=== PATIENT | female | born 1975 | race American Indian/Alaskan Native ===

== ENCOUNTER 2020-09-13 00:38 | Emergency (ER) | payer SELFPAY ==
[2020-09-13] MEDS ORDERED: ACETAMINOPHEN 500 MG TAB PO ONE (04:20)
[2020-09-13] MEDS ORDERED: KETOROLAC 30 MG/1 ML INJ IM ONE (04:20)
[2020-09-13] MEDS ORDERED: CLINDAMYCIN 300 MG CAP PO ONE (04:20)
--- NOTE | 2020-09-13 04:25 | Emergency Department Report ---
ED General Adult HPI - General Chief complaint: Dental/Oral Stated complaint: TOOTHACHE Source: patient Mode of arrival: Ambulatory Limitations: No Limitations - History of Present Illness Initial comments: Patient is a 45-year-old -[place] female with a history of morbid obesity presents to the ED with complaint of acute onset persistent right maxillary premolar molar toothache with gingival pain for the last 2 days. Patient states that she has been taking [id number] pain medications with no relief. Patient states that she has not been able to sleep especially in the last 8 hours because of worsening pain. Patient denies fever, chills, nausea, vomiting, traumatic injury, dizziness, headache, chest pain, shortness of breath, sore throat or neck pain and change in vision. MD Complaint: right maxillary premolar and molar toothache; painful gingiva -: Sudden, days(s) (2) Location: mouth Radiation: non-radiation Severity scale (0 -10): 8 Quality: aching, sharp Consistency: constant Improves with: none Worsens with: none Associated Symptoms: denies other symptoms. denies: confusion, chest pain, cough, diaphoresis, fever/chills, headaches, loss of appetite, malaise, nausea/vomiting, rash, shortness of breath, syncope, weakness Treatments Prior to Arrival: NSAID (12 hours ago) - Related Data Previous Rx's Medication Instructions Recorded Last Taken Type Acetaminophen/Codeine [Tylenol 1 tab PO Q6H PRN #10 tab 09/13/20 Unknown Rx /Codeine # 3 tab] Clindamycin [Clindamycin CAP] 300 mg PO Q8HR #60 capsule 09/13/20 Unknown Rx Ketorolac [Toradol] 10 mg PO Q8H PRN #20 tablet 09/13/20 Unknown Rx Allergies Allergy/AdvReac Type Severity Reaction Status Date / Time No Known Allergies Allergy Verified 09/13/20 04:37 ED Review of Systems ROS: Stated complaint: TOOTHACHE Other details as noted in HPI Constitutional: denies: chills, fever Eyes: denies: eye pain, eye discharge, vision change ENT: dental pain (Right maxillary premolar molar toothache with painful gum). denies: ear pain, throat pain, congestion Respiratory: denies: cough, shortness of breath, wheezing Cardiovascular: denies: chest pain, palpitations Endocrine: no symptoms reported Gastrointestinal: denies: abdominal pain, nausea, diarrhea Genitourinary: denies: urgency, dysuria, discharge Musculoskeletal: denies: back pain, joint swelling, arthralgia Skin: denies: rash, lesions Neurological: denies: headache, weakness, paresthesias Psychiatric: denies: anxiety, depression Hematological/Lymphatic: denies: easy bleeding, easy bruising ED Past Medical Hx - Past Medical History Previous Medical History?: No - Surgical History Past Surgical History?: No - Social History Smoking Status: Former Smoker Substance Use Type: None - Medications Home Medications: Home Medications Medication Instructions Recorded Confirmed Last Taken Type Acetaminophen/Codeine [Tylenol 1 tab PO Q6H PRN #10 tab 09/13/20 Unknown Rx /Codeine # 3 tab] Clindamycin [Clindamycin CAP] 300 mg PO Q8HR #60 capsule 09/13/20 Unknown Rx Ketorolac [Toradol] 10 mg PO Q8H PRN #20 tablet 09/13/20 Unknown Rx ED Physical Exam - General Limitations: No Limitations General appearance: alert, in no apparent distress - Head Head exam: Present: atraumatic, normocephalic, normal inspection - Eye Eye exam: Present: normal appearance, PERRL, EOMI Pupils: Present: normal accommodation - ENT ENT exam: Present: mucous membranes moist, TM's normal bilaterally, normal external ear exam, other (Swollen severely tender right maxillary gingiva; severely tender right maxillary premolar and molar teeth) - Neck Neck exam: Present: normal inspection, full ROM - Respiratory Respiratory exam: Present: normal lung sounds bilaterally. Absent: respiratory distress, wheezes, rales, stridor, chest wall tenderness, accessory muscle use, decreased breath sounds, prolonged expiratory - Cardiovascular Cardiovascular Exam: Present: regular rate, normal rhythm, normal heart sounds. Absent: systolic murmur, diastolic murmur, rubs, gallop - GI/Abdominal GI/Abdominal exam: Present: soft, normal bowel sounds. Absent: tenderness, guarding, rebound, hyperactive bowel sounds, hypoactive bowel sounds, organomegaly - Extremities Exam Extremities exam: Present: normal inspection, full ROM, normal capillary refill - Back Exam Back exam: Present: normal inspection, full ROM. Absent: tenderness, CVA tenderness (R), CVA tenderness (L), muscle spasm, paraspinal tenderness, vertebral tenderness - Neurological Exam Neurological exam: Present: alert, oriented X3, CN II-XII intact, normal gait, reflexes normal - Psychiatric Psychiatric exam: Present: normal affect, normal mood, anxious - Skin Skin exam: Present: warm, dry, intact, normal color. Absent: rash ED Course Vital Signs 09/13/20 09/13/20 03:50 05:03 Temperature 98.0 F 98.2 F Pulse Rate 66 61 Respiratory 18 18 Rate Blood Pressure 214/100 Blood Pressure 199/104 [Right] O2 Sat by Pulse 100 97 Oximetry ED Medical Decision Making - Medical Decision Making This is a 45-year-old -[place] female with a history of morbid obesity presents to the ED with complaint of acute onset persistent right maxillary premolar molar toothache with gingival pain for the last 2 days. Patient states that she has been taking [id number] pain medications with no relief. Patient states that she has not been able to sleep especially in the last 8 hours because of worsening pain. In the ED, patient is alert and oriented x3 and is not in any distress but appears to be in significant pain. Patient is however hypertensive in triage although she denies any past medical history of hypertension, therefore the suspicion is that the hypertension is driven more by pain severity. Patient was treated in the ED with pain medications and observed on the vital signs were rechecked and this showed slight improvement as the severity of pain improved. Patient was therefore discharged home on pain medications and antibiotics and advised to follow-up with her primary care physician or dentist in 7 to 10 days for reevaluation. Patient is advised return to the ED immediately if symptoms get worse. - Differential Diagnosis Dental abscess; gingivitis; dental caries Critical care attestation.: If time is entered above; I have spent that time in minutes in the direct care of this critically ill patient, excluding procedure time. ED Disposition Clinical Impression: Acute gingivitis, Dental abscess, Dental caries Disposition: DC-01 TO HOME OR SELFCARE Is pt being admited?: No Does the pt Need Aspirin: No Condition: Stable Instructions: Dental Abscess, [id number], Trench Mouth Additional Instructions: Take medications with food, drink plenty of fluids and follow-up with your dentist in 7 to 10 days for reevaluation. Return to the ED immediately if symptoms get worse. Prescriptions: Clindamycin [Clindamycin CAP] 300 mg PO Q8HR #60 capsule Ketorolac [Toradol] 10 mg PO Q8H PRN #20 tablet PRN Reason: Pain Acetaminophen/Codeine [Tylenol /Codeine # 3 tab] 1 tab PO Q6H PRN #10 tab PRN Reason: Severe pain Referrals: [facility] [Outside] - 7-10 days Time of Disposition: 04:24 Print Language: KAZAKH
[2020-09-13] MEDS ORDERED: KETOROLAC 10 MG TAB PO ONE ×2 (04:51→04:53)
[2020-09-13 06:29] VITALS: BP 182/88
== END 2020-09-13 06:00 | disposition home or self-care (01) ==
LOC: ED 00:38
DX: K04.7 Periapical abscess without sinus (principal); K02.9 Dental caries, unspecified; K05.00 Acute gingivitis, plaque induced; Z87.891 Personal history of nicotine dependence; Z79.899 Other long term (current) drug therapy
CPT/HCPCS: 99282; J1885